=== PATIENT | male | born 1965 | race American Indian/Alaskan Native ===

== ENCOUNTER 2020-02-24 11:44 | Emergency (ER) | payer MEDICAID, OTHER ==
[2020-02-24] MEDS ORDERED: CYCLOBENZAPRINE 10 MG TAB PO ONE (11:47)
[2020-02-24] MEDS ORDERED: IBUPROFEN 800 MG TAB PO ONE (11:47)
[2020-02-24] MEDS ORDERED: oxyCODONE /ACETAMINOPHEN 5-325MG TAB PO ONE (11:48)
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
--- NOTE | 2020-02-24 13:37 | XRay Report ---
HISTORY:Trauma COMPARISON: None. TECHNIQUE: AP lateral and obliques views were obtained FINDINGS: Bones: No fracture or dislocation. Joint spaces: Moderate narrowing femoral tibial articulation with osteophyte formation. Marked narrow ing of the patellofemoral articulation Soft tissues: Soft tissue calcification present suprapatellar region Additional findings: None. IMPRESSION: 1. No significant abnormality. Signer Name: Ellis Hurd MD Signed: 02/24/2020 1:32 PM Workstation Name: [id number]
--- NOTE | 2020-02-24 13:38 | XRay Report ---
CLINICAL DATA: Trauma TECHNICAL DATA: 3 views were obtained. FINDINGS: Soft tissues are well imaged. Bones are intact. No evidence of fracture. No obvious pneumothorax. IMPRESSION: Normal imaging of the right ribs as noted. Signer Name: Ellis Hurd MD Signed: 02/24/2020 1:34 PM Workstation Name: [id number]
[2020-02-24 14:18] VITALS: BP 144/62
== END 2020-02-24 14:18 | disposition home or self-care (01) ==
LOC: ED 11:44
DX: S16.1XXA Strain of muscle, fascia and tendon at neck level, initial encounter (principal); S39.012A Strain of muscle, fascia and tendon of lower back, initial encounter; M17.11 Unilateral primary osteoarthritis, right knee; I10 Essential (primary) hypertension; V49.49XA Driver injured in collision with other motor vehicles in traffic accident, initial encounter; X58.XXXA Exposure to other specified factors, initial encounter; Y93.89 Activity, other specified; Y92.89 Other specified places as the place of occurrence of the external cause; Y99.8 Other external cause status
CPT/HCPCS: 72040; 72070; 72100; 99284